=== PATIENT | female | born 1975 | race American Indian/Alaskan Native ===

== ENCOUNTER 2018-12-14 14:28 | Emergency (ER) | payer SELFPAY ==
--- NOTE | 2018-12-14 15:34 | Event Note ---
ED Screening Note ED Screening Note: cp sob and mcdaniels This initial assessment/diagnostic orders/clinical plan/treatment(s) is/are subject to change based on patients health status, clinical progression and re- assessment by fellow clinical providers in the ED. Further treatment and workup at subsequent clinical providers discretion. Patient/guardian urged not to elope from the ED as their condition may be serious if not clinically assessed and managed. Initial orders include: ro acs
--- NOTE | 2018-12-14 16:18 | XRay Report ---
PA AND LATERAL CXR HISTORY: Chest pain. COMPARISON: None. FINDINGS: Cardiomediastinal silhouette: Normal cardiac size. Normal mediastinal contours. Lungs: Normal expansion. Normal lung aeration. No pleural effusions. No pneumothorax. Pulmonary vascularity: Normal. Support hardware: None. Additional findings: None. IMPRESSION: 1. No acute cardiopulmonary process. Signer Name: Mahad Penaloza MD Signed: 12/14/2018 4:13 PM Workstation Name: [id number]
[2018-12-14 16:24] LABS: Basophils % (Auto) 0.8 % (0.0-1.8); Hematocrit 38.5 % (30.3-42.9); Hemoglobin 12.7 gm/dl (10.1-14.3); Lymphocytes # (Auto) 1.9 K/mm3 (1.2-5.4); Lymphocytes % (Auto) 44.5 % (13.4-35.0); Mean Corpuscular HGB Conc 33 % (30-34); Mean Corpuscular Volume 86 fl (79-97); Monocytes # (Auto) 0.4 K/mm3 (0.0-0.8); Monocytes % (Auto) 8.2 % (0.0-7.3); Platelet Count 208 K/mm3 (140-440); Red Blood Count 4.46 M/mm3 (3.65-5.03); Red Cell Distribution Width 13.8 % (13.2-15.2)
[2018-12-14 16:42] LABS: Alanine Aminotransferase 10 units/L (7-56); Albumin 3.8 g/dL (3.9-5); BUN/Creatinine Ratio 17; Blood Urea Nitrogen 12 mg/dL (7-17); Calcium 9.2 mg/dL (8.4-10.2); Hemolysis Index 13
--- NOTE | 2018-12-14 18:40 | Emergency Department Report ---
ED Chest Pain HPI - General Chief Complaint: Chest Pain Stated Complaint: CHEST PAIN/SOB/HEADACHE Time Seen by Provider: 12/14/18 15:32 Source: patient Mode of arrival: Ambulatory Limitations: No Limitations - History of Present Illness Initial Comments: 43-year-old female with past medical history of mitral valve prolapse as to the hospital complains of intermittent chest pain shortness of breath 3 weeks. Pain is mainly in the right upper chest and times breast to the left upper chest. He described as an aching pain that is intermittent without aggravating or alleviating factors. Patient does have some dyspnea when the pain occurs with exertion. However, she does not have dyspnea when the pain occurs at rest. She denies nausea, vomiting, diaphoresis, smoking history, calf tenderness, leg edema, recent travel, history of PE/DVT. Mom does have a history of cardiac disease and in her 60s. 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 She also complains of intermittent headache that improves when taken Excedrin Migraine. Denies chest pain or headache at this time. - Related Data Previous Rx's Medication Instructions Recorded Last Taken Type Acetaminophen/Codeine [Tylenol 1 tab PO Q6H PRN #12 tab 05/25/18 Unknown Rx /Codeine # 3 tab] Ibuprofen [Motrin 600 MG tab] 600 mg PO Q8H PRN #20 tablet 12/14/18 Unknown Rx Allergies Allergy/AdvReac Type Severity Reaction Status Date / Time No Known Allergies Allergy Unverified 05/25/18 21:00 Heart Score - HEART Score History: Slightly suspicious EKG: Normal Age: 45-65 Risk factors: No known risk factors Troponin: < normal limit HEART Score: 1 ED Review of Systems ROS: Stated complaint: CHEST PAIN/SOB/HEADACHE Other details as noted in HPI Comment: All other systems reviewed and negative ED Past Medical Hx - Past Medical History Previous Medical History?: Yes Additional medical history: Mitral valve prolapse - Surgical History Past Surgical History?: Yes Additional Surgical History: C section - Social History Smoking Status: Never Smoker Substance Use Type: None - Medications Home Medications: Home Medications Medication Instructions Recorded Confirmed Last Taken Type Acetaminophen/Codeine [Tylenol 1 tab PO Q6H PRN #12 tab 05/25/18 Unknown Rx /Codeine # 3 tab] Ibuprofen [Motrin 600 MG tab] 600 mg PO Q8H PRN #20 tablet 12/14/18 Unknown Rx ED Physical Exam - General Limitations: No Limitations - Other Other exam information: General: No limitations, patient is alert in no acute distress Head exam: Atraumatic, normocephalic Eyes exam: Normal appearance, pupils equal reactive to light, extraocular movements intact ENT: Moist mucous membrane Neck exam: Normal inspection, full range of motion, no meningismus nontender Respiratory exam: Clear to auscultation bilateral, no wheezes, rales, crackles Cardiovascular: Normal rate and rhythm, chest wall nontender Abdomen: Soft, nondistended, and nontender, with normal bowel sounds, no rebound, or guarding Extremity: Full range of motion normal inspection no deformity, no calf tenderness or edema Back: Normal Inspection, full range of motion, no tenderness Neurologic: Alert, oriented x3, cranial nerves intact, no motor or sensory deficit Psychiatric: normal affect, normal mood Skin: Warm, dry, intact ED Course Vital Signs 12/14/18 12/14/18 15:14 21:42 Temperature 98.7 F 98.9 F Pulse Rate 69 64 Respiratory 16 14 Rate Blood Pressure 129/87 Blood Pressure 136/77 [Left] O2 Sat by Pulse 99 100 Oximetry JAZMÍN score - Jazmín Score Age > 65: (0) No Aspirin use within the Past 7 Days: (0) No 3 or more CAD Risk Factors: (0) No 2 or more Angina events in past 24 hrs: (0) No Known CAD with more than 50% Stenosis: (0) No Elevated Cardiac Markers: (0) No ST Deviation Greater than 0.5mm: (0) No JAZMÍN Score: 0 ED Medical Decision Making - Lab Data Result diagrams: 12/14/18 16:10 12/14/18 16:10 Lab Results 12/14/18 12/14/18 12/14/18 Range/Units 16:10 16:10 18:57 WBC 4.4 L (4.5-11.0) K/mm3 RBC 4.46 (3.65-5.03) M/mm3 Hgb 12.7 (10.1-14.3) gm/dl Hct 38.5 (30.3-42.9) % MCV 86 (79-97) fl MCH 29 (28-32) pg MCHC 33 (30-34) % RDW 13.8 (13.2-15.2) % Plt Count 208 (140-440) K/mm3 Lymph % (Auto) 44.5 H (13.4-35.0) % [place] % (Auto) 8.2 H (0.0-7.3) % Eos % (Auto) 1.0 (0.0-4.3) % Baso % (Auto) 0.8 (0.0-1.8) % Lymph # 1.9 (1.2-5.4) K/mm3 [place] # 0.4 (0.0-0.8) K/mm3 Eos # 0.0 (0.0-0.4) K/mm3 Baso # 0.0 (0.0-0.1) K/mm3 Seg Neutrophils % 45.5 (40.0-70.0) % Seg Neutrophils # 2.0 (1.8-7.7) K/mm3 D-Dimer 471.55 H (0-234) ng/mlDDU Sodium 138 (137-145) mmol/L Potassium 4.4 (3.6-5.0) mmol/L Chloride 105.7 (98-107) mmol/L Carbon Dioxide 24 (22-30) mmol/L Anion Gap 13 mmol/L BUN 12 (7-17) mg/dL Creatinine 0.7 (0.7-1.2) mg/dL Estimated GFR > 60 ml/min BUN/Creatinine Ratio 17 % Glucose 81 (65-100) mg/dL Calcium 9.2 (8.4-10.2) mg/dL Total Bilirubin < 0.20 (0.1-1.2) mg/dL AST 15 (5-40) units/L ALT 10 (7-56) units/L Alkaline Phosphatase 50 (35-129) units/L Troponin T < 0.010 (0.00-0.029) ng/mL Total Protein 7.5 (6.3-8.2) g/dL Albumin 3.8 L (3.9-5) g/dL Albumin/Globulin Ratio 1.0 % HCG, Qual (Negative) Urine Color (Yellow) Urine Turbidity (Clear) Urine pH (5.0-7.0) Ur Specific [place] (1.003-1.030) Urine Protein (Negative) mg/dL Urine Glucose (UA) (Negative) mg/dL Urine Ketones (Negative) mg/dL Urine Blood (Negative) Urine Nitrite (Negative) Urine Bilirubin (Negative) Urine Urobilinogen (<2.0) mg/dL Ur Leukocyte Esterase (Negative) Urine WBC (Auto) (0.0-6.0) /HPF Urine RBC (Auto) (0.0-6.0) /HPF U Epithel Cells (Auto) (0-13.0) /HPF Urine Mucus /HPF 12/14/18 12/14/18 12/14/18 Range/Units 18:57 21:19 Unknown WBC (4.5-11.0) K/mm3 RBC (3.65-5.03) M/mm3 Hgb (10.1-14.3) gm/dl Hct (30.3-42.9) % MCV (79-97) fl MCH (28-32) pg MCHC (30-34) % RDW (13.2-15.2) % Plt Count (140-440) K/mm3 Lymph % (Auto) (13.4-35.0) % [place] % (Auto) (0.0-7.3) % Eos % (Auto) (0.0-4.3) % Baso % (Auto) (0.0-1.8) % Lymph # (1.2-5.4) K/mm3 [place] # (0.0-0.8) K/mm3 Eos # (0.0-0.4) K/mm3 Baso # (0.0-0.1) K/mm3 Seg Neutrophils % (40.0-70.0) % Seg Neutrophils # (1.8-7.7) K/mm3 D-Dimer (0-234) ng/mlDDU Sodium (137-145) mmol/L Potassium (3.6-5.0) mmol/L Chloride (98-107) mmol/L Carbon Dioxide (22-30) mmol/L Anion Gap mmol/L BUN (7-17) mg/dL Creatinine (0.7-1.2) mg/dL Estimated GFR ml/min BUN/Creatinine Ratio % Glucose (65-100) mg/dL Calcium (8.4-10.2) mg/dL Total Bilirubin (0.1-1.2) mg/dL AST (5-40) units/L ALT (7-56) units/L Alkaline Phosphatase (35-129) units/L Troponin T < 0.010 (0.00-0.029) ng/mL Total Protein (6.3-8.2) g/dL Albumin (3.9-5) g/dL Albumin/Globulin Ratio % HCG, Qual Negative (Negative) Urine Color Yellow (Yellow) Urine Turbidity Clear (Clear) Urine pH 6.0 (5.0-7.0) Ur Specific [place] 1.018 (1.003-1.030) Urine Protein <15 mg/dl (Negative) mg/dL Urine Glucose (UA) Neg (Negative) mg/dL Urine Ketones Neg (Negative) mg/dL Urine Blood Mod (Negative) Urine Nitrite Neg (Negative) Urine Bilirubin Neg (Negative) Urine Urobilinogen < 2.0 (<2.0) mg/dL Ur Leukocyte Esterase Neg (Negative) Urine WBC (Auto) < 1.0 (0.0-6.0) /HPF Urine RBC (Auto) 4.0 (0.0-6.0) /HPF U Epithel Cells (Auto) 1.0 (0-13.0) /HPF Urine Mucus Few /HPF - EKG Data -: EKG Interpreted by [place] EKG shows normal: sinus rhythm, axis (qrs 48), QRS complexes (qrsd 108), ST-T waves (no stemi) Rate: normal - EKG Data 12/14/18 22:04 repeat ekg done at 20:11 with nonspecific anterior t wave changes and not acute changes compared to earlier ekg today. - Radiology Data Radiology results: report reviewed PA AND LATERAL CXR HISTORY: Chest pain. COMPARISON: None. FINDINGS: Cardiomediastinal silhouette: Normal cardiac size. Normal mediastinal contours. Lungs: Normal expansion. Normal lung aeration. No pleural effusions. No pneumothorax. Pulmonary vascularity: Normal. Support hardware: None. Additional findings: None. IMPRESSION: 1. No acute cardiopulmonary process. CHEST 1 VIEW, 12/14/2018 9:23 PM INDICATION: Chest pain COMPARISON: None FINDINGS: Support devices: None Heart: The cardiac silhouette is upper limits of normal in size. Lungs/pleura: No focal airspace disease or significant pleural effusion is seen. Additional findings: No additional acute findings. IMPRESSION: 1. No evidence of acute cardiopulmonary process. - Medical Decision Making Patient declined pain medication because she didn't have pain in the ED. Low suspicion for cardiac causes chest pain given her low heart score, right-sided chest pain. D-dimer elevated without risk factors for DVT and negative CT angiogram chest. Patient received outpatient cardiac protein a history of mitral valve prolapse with further workup and evaluation. - Differential Diagnosis atypical chest pain, mitral valve prolapse, pulmonary embolism, unstable an Critical Care Time: No Critical care attestation.: If time is entered above; I have spent that time in minutes in the direct care of this critically ill patient, excluding procedure time. ED Disposition Clinical Impression: Atypical chest pain, History of mitral valve prolapse Disposition: TO HOME OR SELFCARE Is pt being admited?: No Does the pt Need Aspirin: No Condition: Stable Instructions: Chest Pain (ED), Mitral Valve Prolapse (ED) Additional Instructions: Take the medication as prescribed. Follow up with your doctor or the clinic/doctor provided. Return if symptoms worsen as indicated by your discharge instructions Prescriptions: Ibuprofen [Motrin 600 MG tab] 600 mg PO Q8H PRN #20 tablet PRN Reason: Pain Referrals: [facility] MD LYLE [Primary Care Provider] - 3-5 Days JULIANE KENDALL MD [Staff Physician] - 3-5 Days (cardiology ) Time of Disposition: 22:31
[2018-12-14 19:48] LABS: Bilirubin,Urine NEG (Negative); Blood,Urine MOD (Negative); Color,Urine Yellow (Yellow); Mucus,Urine FEW /HPF; Protein,Urine <15 mg/dL mg/dL (Negative); Urobilinogen,Urine < 2.0 mg/dL (<2.0); WBC,Urine < 1.0 /HPF (0.0-6.0)
--- NOTE | 2018-12-14 21:43 | Cat Scan Report ---
CTA CHEST WITH IV CONTRAST, 12/14/2018 INDICATION: Shortness of breath. TECHNIQUE: Axial CT images were obtained through the chest after injection of IV contrast. Coronal oblique 2-D reconstruction images were produced. 3 plane MIP reconstruction images were produced at an [employer] workstation. All CTs at this facility utilize dose reduction techniques including automated expos ure control, iterative reconstruction and weight based dosing when appropriate to reduce patient radi ation dose to as low as reasonable achievable. COMPARISON: Chest radiograph, 12/14/2018 FINDINGS: Evaluation of the pulmonary arteries demonstrate no evidence of central or segmental filling defects to suggest pulmonary embolism. The heart is normal in size. Evaluation of the lung parenchyma demonst rates no focal airspace disease or pleural effusion. Limited imaging of the upper abdomen shows no evidence of acute abnormality. There is a 1.4 cm cyst w ithin the left hepatic lobe. Evaluation of bony structures demonstrates no evidence of acute bony abnormality. IMPRESSION: 1. No evidence of pulmonary embolism or acute parenchymal process. Signer Name: Juliana Andres MD Signed: 12/14/2018 9:38 PM Workstation Name: [id number]
[2018-12-14 23:00] VITALS: BP 134/74
== END 2018-12-14 22:58 | disposition home or self-care (01) ==
LOC: ED 14:28
DX: R07.89 Other chest pain (principal); I34.1 Nonrheumatic mitral (valve) prolapse
CPT/HCPCS: 36415; 71046; 71275; 80053; 81001; 84484; 84703; 85025; 85379; 93005; 93010; 99284; Q9967